=== PATIENT | female | born 1965 | race Caucasian/White ===

== ENCOUNTER 2023-11-26 13:43 | Outpatient (OUT) | payer OTHER, SELFPAY ==
--- NOTE | 2023-11-26 13:46 | MM_ITS ---
Patient Name: ROSELIA ANN MR#: [id number] : 1965 Exam Date: 11/26/2023 Ordering Doctor: Shaikh Teresa Zendejas . RADIOLOGY REPORT PROCEDURE: MM TOMOSYNTHESIS SCREENING BI COMPARISON: MG MAMM SCREEN 3D LYN CAD, 02/17/2022. INDICATIONS: screening Calculator Name NCI Breast Cancer Risk Assessment Tool 5 Year Breast Cancer Risk 1.00% Lifetime Breast Cancer Risk 6.40% Personal Breast Cancer No Personal Ovarian Cancer No Treatments None Family Cancers None LOCATION: [facility] BREAST COMPOSITION: Scattered areas fibroglandular density. FINDINGS: DIAGNOSTIC CATEGORY 2--BENIGN FINDING: RIGHT BREAST: No significant suspicious finding. Stable, chronic asymmetry anterior upper outer quadrant. No significant change has occurred. LEFT BREAST: No significant suspicious finding. Stable, chronic asymmetry in supra-areolar region. No significant change has occurred. RECOMMENDATIONS: ROUTINE MAMMOGRAM AND CLINICAL EVALUATION IN 12 MONTHS. PLEASE NOTE: A NORMAL MAMMOGRAM DOES NOT EXCLUDE THE POSSIBILITY OF BREAST CANCER. A CLINICALLY SUSPICIOUS PALPABLE LUMP SHOULD BE BIOPSIED. Dictated by: Kishan Mckeon M.D. on 11/26/2023 at 15:33 Approved by: Kishan Mckeon M.D. on 11/26/2023 at 15:36
== END 2023-11-26 13:44 | disposition home or self-care (01) ==
LOC: MAMMO 13:43
PROVIDERS: PCP Internal Medicine; Visit Provider Internal Medicine
DX: Z12.31 Encounter for screening mammogram for malignant neoplasm of breast (principal)
CPT/HCPCS: 77063; 77067